=== PATIENT | female | born 1950 | race Caucasian/White ===

== ENCOUNTER 2023-03-05 20:42 | Emergency (ER) | payer BC ==
[~2023-03-05] VITALS: Ht 157.5 cm; Wt 50.0 kg
[2023-03-05 21:36] LABS: BASOPHILS % 0.7 % (0.0-2.0); EOSINOPHILS % 5.3 % (0.0-5.0); HEMATOCRIT. 33.5 % (36.0-48.0); HEMOGLOBIN. 11.5 g/dL (12.0-16.0); LYMPHOCYTES % 19.7 % (20.0-50.0); MEAN CORPUSCULAR HEMOGLOBIN 30.2 pg (28.0-32.0); MONOCYTES % 7.2 % (2.0-8.0); NEUTROPHILS % 67.1 % (40.0-76.0); PLATELET 305 x1000/uL (130-400); RED CELL DISTRIBUTION WIDTH 12.6 % (11.6-14.6)
[2023-03-05 21:40] LABS: CHLORIDE 92 mEq/L (98-107)
[2023-03-05 22:05] LABS: CLARITY URINE CLEAR (CLEAR); COLOR URINE YELLOW (YELLOW); KETONES URINE 1+ (NEGATIVE); LEUKOCYTE ESTERASE URINE NEGATIVE (NEGATIVE); NITRITE URINE NEGATIVE (NEGATIVE); OCCULT BLOOD URINE TRACE (NEGATIVE); PROTEIN URINE NEGATIVE (NEGATIVE); SPECIFIC GRAVITY URINE 1.011 (1.005-1.030); UROBILINOGEN URINE 0.2 E.U./dL (0.2-1.0)
[2023-03-06] MEDS ORDERED: METR-167 MT (02:37)
[2023-03-06] MEDS ORDERED: CIPR250S3 MT (02:37)
[2023-03-06 02:45] VITALS: BP 141/87
== END 2023-03-06 02:52 | disposition home or self-care (01) ==
LOC: ER 20:42
DX: K52.9 Noninfective gastroenteritis and colitis, unspecified (principal); Z88.0 Allergy status to penicillin
CPT/HCPCS: 36415; 74176; 80053; 81003; 85025; 99284